=== PATIENT | female | born 2000 | race Caucasian/White ===

== ENCOUNTER 2020-06-04 19:07 | Emergency (ER) | payer OTHER, SELFPAY ==
[2020-06-04 19:15] VITALS: BP 143/87; PULSE 90; RESP 18; TEMP 36.7; O2SAT 99; BMI 22.1
[2020-06-04 21:18] VITALS: BP 131/74; PULSE 104; RESP 16; TEMP 37; O2SAT 97
--- NOTE | 2020-06-04 21:25 | ED_ITS ---
HPI - General Adult General Chief complaint: General Medical Stated complaint: foreign body Source: patient Mode of arrival: ambulatory Limitations: no limitations History of Present Illness HPI narrative: 20-year-old female presents with a broken insulin pump needle to her left thigh. She was playing with her children and her , she hit the side of her leg and the insulin pump broke off. She did try to remove the needle herself however the needle went deeper into her skin. She does not have any other concerns at this time. Onset (ago): hour(s) (Within the hour of arrival) Location: lower extremity Radiation: non-radiation Severity: mild Associated symptoms: denies other symptoms Related Data Allergies Allergy/AdvReac Type Severity Reaction Status Date / Time No Known Allergies Allergy Verified 06/04/20 19:17 Review of Systems Review of Systems: Constitutional: No Fever, No Chills, positive foreign body to the left thigh ENT/Mouth: No Ear Pain, No Hoarseness, No sore throat Eyes: No Eye Pain, No Swelling, No Redness, No Foreign Body Cardiovascular: No Chest Pain, No SOB Respiratory: No Cough, No Dyspnea Gastrointestinal: No Nausea, No Vomiting, No Diarrhea, No abdominal Pain Genitourinary: No Dysuria, No Hematuria Musculoskeletal: No joint pain, No Myalgias, No Joint Swelling Skin: No Skin lacerations, No rash Neuro: No Weakness, No Numbness, No Paresthesias, No Loss of Consciousness, No Dizziness, No Headache Psych: No Anxiety/Panic, No Depression Heme/Lymph: no easy bruising, no Lymphadenopathy Endocrine: No Polyuria, No Polydipsia Yes all other systems are reviewed and are negative [facility] Past Medical History Attestation statement: The following information was validated with the patient. Medical History Diabetes Hypothyroid Social History Social History Advance Directives: No Advance Directives Information Provided: Yes Physical Exam Vital Signs: Vital Signs: Last Vital Signs Temp 98.6 F 06/04/20 21:18 Pulse 104 H 06/04/20 21:18 Resp 16 06/04/20 21:18 BP 131/74 06/04/20 21:18 Pulse Ox 97 06/04/20 21:18 Body Mass Index 22.1 Appearance: Alert. Oriented X3. No acute distress. Eyes: Pupils equal, round and reactive to light. ENT: Pharynx normal. Neck: Normal inspection. Neck supple. CVS: Normal heart rate and rhythm. Pulses normal. Respiratory: No respiratory distress. Breath sounds normal. Abdomen: Soft and nontender. Skin: Skin warm and dry. Normal skin color. Normal skin turgor. Extremities: No lower extremity edema. Neuro: No motor deficit. No sensory deficit. Course Course Course Narrative: 20-year-old female presents with foreign body, broken needle from her insulin pump to the left thigh. Plan is to use lidocaine with epi and to extract the needle. Small incision made with an 11 blade, needle visualized and removed without difficulty. Site was prepped and draped in sterile fashion, patient tolerated procedure well, 0 blood loss. Steri-Strips used, laceration approximately 0.25 cm in length and in depth. Patient verbalized understanding of and agrees to plan of care discharge home. Medical Decision Making MDM Narrative Medical decision making narrative: Foreign body removal Discharge Plan Discharge Clinical Impression: History of retained foreign body fully removed Patient Disposition: Home, Self-Care Instructions: Wound Infection (ED), Wound Healing and Your Diet (ED), Sterist rips (ED) Additional Instructions: We removed a broken insulin syringe from your left thigh. Please keep the Steri-Strips in place. Follow-up with primary care physician and her endocri nologist as needed. Thank you for choosing this emergency department for evaluation. Please follow-up with primary care physician as needed. Return to the emergency department for any new, concerning, or worsening symptoms. Interventions: ED Discharge Assessment Last Done: 06/04/20 22:20 Discharge Date/Time: 06/04/20 22:23
[2020-06-04] MEDS: Lidocaine HCl 2%/Epi 1:100,000 20 ML VIAL 5 ML INFILTRATI (21:37)
== END 2020-06-04 22:23 | disposition home or self-care (01) ==
PROVIDERS: Emergency Provider Internal Medicine; PCP Internal Medicine Medical Oncology
DX: M79.5 Residual foreign body in soft tissue (principal); Z79.899 Other long term (current) drug therapy
CPT/HCPCS: 99284

== ENCOUNTER 2021-03-21 13:57 | Emergency (ER) | payer BC, MEDICAID, SELFPAY ==
[2021-03-21 14:25] VITALS: BP 133/79; PULSE 107; RESP 18; TEMP 37.2; O2SAT 98; BMI 23.0
--- NOTE | 2021-03-21 15:54 | PC.NURSE ---
call no answer [id number]
--- NOTE | 2021-03-21 16:02 | PC.NURSE ---
second call, no answer. LWT
== END 2021-03-21 16:28 | disposition left against medical advice (07) ==
PROVIDERS: Emergency Provider Emergency Medicine
DX: O46.90 Antepartum hemorrhage, unspecified, unspecified trimester (principal); Z3A.00 Weeks of gestation of pregnancy not specified
CPT/HCPCS: 99281; 99282

== ENCOUNTER 2023-10-01 18:39 | Emergency (ER) | payer BC, SELFPAY ==
--- NOTE | ~2023-10-01 | XR_ITS ---
EXAMINATION: XR CHEST CLINICAL INFORMATION: Chest pain COMPARISON: None available. TECHNIQUE: 2 views of the chest were obtained. FINDINGS: The trachea is in normal anatomic position. Heart size is normal. The lungs are clear. No pleural effusion or pneumothorax. No acute osseous abnormality. XR/XR chest 2V IMPRESSION: No acute cardiopulmonary disease.
[2023-10-01 18:46] VITALS: BP 121/77; BP 139/83; PULSE 123; PULSE 126; RESP 18; TEMP 36.6; O2SAT 95; O2SAT 98; BMI 30.9
--- NOTE | 2023-10-01 18:49 | ECG_ITS ---
Test Reason : CHEST PAIN Blood Pressure : / mmHG Vent. Rate : 118 BPM Atrial Rate : 118 BPM P-R Int : 146 ms QRS Dur : 072 ms QT Int : 294 ms P-R-T Axes : 035 032 -06 degrees QTc Int : 412 ms Sinus tachycardia Otherwise normal ECG No previous ECGs available Referred By: Generic ED Physician Electronically Signed By:CORIE ESCALONA
--- NOTE | 2023-10-01 18:59 | ED_ITS ---
HPI - Chest Pain General Chief Complaint: Chest Pain Stated Complaint: chest pain, slightly tachycardic Time Seen by Provider: 10/01/23 18:52 Source: patient Limitations: no limitations History of Present Illness HPI narrative: 23 years old with history of type 1 diabetes, on insulin, compliant with her medication, presents emergency room for chest pain. Patient reports that the pain started approximately 2 hours prior to presentation while she was playing video games. Patient's reports that the pain does not appear to be exertional and did not worse with deep respiration. Patient reported that she had nausea but no episodes of vomiting. Patient also reports that she never experienced an episode like this before. Patient denies chills fever or cough No abdominal pain, diarrhea, bloody stools. Related Data Allergies Allergy/AdvReac Type Severity Reaction Status Date / Time No Known Allergies Allergy Verified 10/01/23 18:49 Review of Systems 2 Review of Systems: Yes all other systems are reviewed and are negative PMFSH Past Medical History Medical History Diabetes Hypothyroid Social History Social History Advance Directives: No Advance Directives Information Provided: No Physical Exam 2 Vital Signs: Vital Signs: Last Vital Signs Temp 97.8 F 10/01/23 18:46 Pulse 123 H 10/01/23 18:46 Resp 18 10/01/23 18:46 BP 121/77 10/01/23 18:46 Pulse Ox 95 10/01/23 18:46 O2 Del Method Room Air 10/01/23 18:46 BMI result Body Mass Index 30.9 General: Alert, Not in Distress Skin: No rash, warm HEENT: Atraumatic, No Exudate or Pharyngeal Erythema Resp: Normal Breath sounds bilaterally Cardio: tachycardia but Regular rate and, Normal S1, S2 ABD: Abd soft, non tender, no guarding or rebound. Normal Bowel sounds. : No cva tenderness Neuro: Alert, oriented x4, PERRL Strenght 5/5 on all extremities Sensation is preserved in both lower and upper extremities Index to nose: normal Cranial Nerves II-XII grossly intact No dysarthria, or aphasia No neglet. Visual mayes are normal bilaterally Psych: Cooperative, NO SI Course Reevaluation(s) Reevaluation #1: Patient's symptoms have improved. Lab work was unremarkable including CBC and troponin. Consideration of the fact the patient is tachycardic will add D-dimer. We will send out to Dr. Genao Time: 21:22 Medications Administered Discontinued Medications Generic Name Dose Route Start Last Admin Trade Name Sara PRN Reason Stop Dose Admin Acetaminophen 975 mg 10/01/23 18:58 10/01/23 19:16 Acetaminophen 325 Mg Tablet PO 10/01/23 18:59 975 mg ONCE ONE Administration Sodium Chloride 1,000 mls @ 999 mls/hr 10/01/23 19:15 10/01/23 19:16 Ns IV 10/01/23 20:15 999 mls/hr .Q1H1M RANDA Administration Ibuprofen 400 mg 10/01/23 18:58 10/01/23 19:16 Ibuprofen 400 Mg Tablet PO 10/01/23 18:59 400 mg ONCE ONE Administration Medical Decision Making Medical Decision Making [facility] Narrative: Patient presented to the emergency room for sudden onset of chest pain that started approximately 2 hours prior to presentation. Her EKG that I personally interpreted and reviewed showed sinus tachycardia, unclear the reason of the patient's chest pain, pain is not typical features. Patient has history of diabetes and I do not think this is an atypical presentation of DKA or will check a VBG. High likely ACS, patient is 23 years old she has sinus tachycardia but I have P low on my differential diagnosis at this time. Plan Single troponin, CBC, BMP Chest x-ray VBG Analgesia IV fluids The assess Admission/Observation Consideration of admission/observation: Escalation of care including admission/observation considered Lab Data [facility] Lab Attestation statement: I reviewed the patient's lab results. Negative troponin D-dimer pending unremarkable CBC and BMP 10/01/23 19:00 10/01/23 19:25 Labs: Lab Results 10/01/23 10/01/23 10/01/23 Range/Units 19:00 19:25 19:29 WBC 9.9 (4.8-10.8) X10*3/uL RBC 4.53 (4.20-5.50) X10*6/uL Hgb 14.2 (12.0-16.0) g/dl Hct 41.0 (37.0-47.0) % MCV 90.5 (80.0-98.0) fL MCH 31.3 (27.0-33.0) pg MCHC 34.6 (31.0-35.0) g/dl RDW 12.7 (11.0-16.0) % Plt Count 394 (160-400) X10*3/uL MPV 8.9 L (9.4-12.3) fL Immature Gran % (Auto) 0.2 (0.0-0.4) % Neut % (Auto) 63.5 (45-73) % Lymph % (Auto) 26.1 (20-40) % [place] % (Auto) 7.7 (2-11) % Eos % (Auto) 1.6 (0-4) % Baso % (Auto) 0.9 (0-2) % Lymph # (Auto) 2.6 (1.2-4.9) X10*3/uL [place] # (Auto) 0.8 (0.1-1.2) X10*3/uL Eos # (Auto) 0.2 (0.0-0.4) X10*3/uL Baso # (Auto) 0.1 (0.0-0.2) X10*3/uL Abs Immat Gran (auto) 0.02 (0.00-0.03) X10*3/uL Absolute Neuts (auto) 6.3 (2.0-8.3) x10*3/uL Absolute Nucleated RBC 0.000 (0.0-0.012) X10*3/uL Nucleated RBC % (auto) 0.0 (0.0-0.2) /100WBC VBG pH 7.46 H (7.32-7.43) VBG pCO2 27 mmHg VBG pO2 111 mmHg VBG HCO3 19 L (22-26) mmol/L VBG O2 Saturation 99.0 % VBG Base Excess -2.6 mmol/L Sodium 139 (135-145) mmol/L Potassium 4.3 (3.3-5.1) mmol/L Chloride 106 (96-108) mmol/L Carbon Dioxide 21 L (22-29) mmol/L Anion Gap 16 (12-20) BUN 16 (9-16) mg/dL Creatinine 1.18 (0.5-1.4) mg/dL Estim Creat Clear Calc 73.2 Estimated GFR 56 Random Glucose 213 H (60-115) mg/dL Calcium 9.2 (8.4-10.2) mg/dL Troponin I High Sens < 2.7 (<3.5-17.0) ng/L Urine Test (NEGATIVE) 10/01/23 Range/Units 20:24 WBC (4.8-10.8) X10*3/uL RBC (4.20-5.50) X10*6/uL Hgb (12.0-16.0) g/dl Hct (37.0-47.0) % MCV (80.0-98.0) fL MCH (27.0-33.0) pg MCHC (31.0-35.0) g/dl RDW (11.0-16.0) % Plt Count (160-400) X10*3/uL MPV (9.4-12.3) fL Immature Gran % (Auto) (0.0-0.4) % Neut % (Auto) (45-73) % Lymph % (Auto) (20-40) % Andrews % (Auto) (2-11) % Eos % (Auto) (0-4) % Baso % (Auto) (0-2) % Lymph # (Auto) (1.2-4.9) X10*3/uL Andrews # (Auto) (0.1-1.2) X10*3/uL Eos # (Auto) (0.0-0.4) X10*3/uL Baso # (Auto) (0.0-0.2) X10*3/uL Abs Immat Gran (auto) (0.00-0.03) X10*3/uL Absolute Neuts (auto) (2.0-8.3) x10*3/uL Absolute Nucleated RBC (0.0-0.012) X10*3/uL Nucleated RBC % (auto) (0.0-0.2) /100WBC VBG pH (7.32-7.43) VBG pCO2 mmHg VBG pO2 mmHg VBG HCO3 (22-26) mmol/L VBG O2 Saturation % VBG Base Excess mmol/L Sodium (135-145) mmol/L Potassium (3.3-5.1) mmol/L Chloride (96-108) mmol/L Carbon Dioxide (22-29) mmol/L Anion Gap (12-20) BUN (9-16) mg/dL Creatinine (0.5-1.4) mg/dL Estim Creat Clear Calc Estimated GFR Random Glucose (60-115) mg/dL Calcium (8.4-10.2) mg/dL Troponin I High Sens (<3.5-17.0) ng/L Urine Test NEGATIVE (NEGATIVE) Independent Interpretation I performed an independent interpretation of an: EKG (Personally reviewed and interpreted EKG: Sinus tachycardia) and Plain X-Ray Interpretation: Personally reviewed and interpreted chest x-ray normal chest x-ray Discharge Plan Discharge Clinical Impression: Chest pain Print Language: [place]
[2023-10-01 19:06] LABS: MANUAL DIFF FLAG NO
[2023-10-01 19:07] LABS: Basophils Absolute Auto 0.1 X10*3/uL (0.0-0.2); Basophils Percent Auto 0.9 % (0-2); Eosinophils Absolute Auto 0.2 X10*3/uL (0.0-0.4); Eosinophils Percent Auto 1.6 % (0-4); Hemoglobin 14.2 g/dl (12.0-16.0); Imm Gran Abs Auto 0.02 X10*3/uL (0.00-0.03); Imm Gran Pct Auto 0.2 % (0.0-0.4); Lymphocytes Absolute Auto 2.6 X10*3/uL (1.2-4.9); Lymphocytes Percent Auto 26.1 % (20-40); Mean Corpuscular HGB Conc 34.6 g/dl (31.0-35.0); Mean Corpuscular Hemoglobin 31.3 pg (27.0-33.0); Mean Corpuscular Volume 90.5 fL (80.0-98.0); Mean Platelet Volume 8.9 fL (9.4-12.3); Monocytes Absolute Auto 0.8 X10*3/uL (0.1-1.2); Monocytes Percent Auto 7.7 % (2-11); Neutrophils Absolute Auto 6.3 x10*3/uL (2.0-8.3); Neutrophils Percent Auto 63.5 % (45-73); Platelet Count 394 X10*3/uL (160-400); Red Blood Count 4.53 X10*6/uL (4.20-5.50); Red Cell Distribution Width 12.7 % (11.0-16.0); White Blood Count 9.9 X10*3/uL (4.8-10.8)
[2023-10-01] MEDS: 0.9 % Sodium Chloride 1,000 ML 999 ML IV (19:16)
[2023-10-01] MEDS: Ibuprofen 400 MG TABLET PO (19:16)
[2023-10-01] MEDS: Acetaminophen 325 MG TABLET 975 MG PO (19:16)
[2023-10-01 19:39] LABS: VBG Base Excess -2.6 mmol/L; VBG HCO3 19 mmol/L (22-26); VBG pCO2 27 mmHg; VBG pH 7.46 (7.32-7.43); VBG pO2 111 mmHg
[2023-10-01 19:42] LABS: Venous Blood Gas Refer to POC result
[2023-10-01 19:45] LABS: Anion Gap 16 (12-20); Blood Urea Nitrogen 16 mg/dL (9-16); Calcium 9.2 mg/dL (8.4-10.2); Carbon Dioxide 21 mmol/L (22-29); Chloride 106 mmol/L (96-108); Creatinine Clr Calc Pharmacy 73.2; Estimated Glomerular Filt Rate 56; Glucose Random 213 mg/dL (60-115); Potassium 4.3 mmol/L (3.3-5.1); Sodium 139 mmol/L (135-145)
[2023-10-01 19:58] LABS: Troponin-I High Sensitivity < 2.7 ng/L (<3.5-17.0)
[2023-10-01 20:39] LABS: UPreg QC Valid YES; Urine Pregnancy NEGATIVE (NEGATIVE)
[2023-10-01 21:54] LABS: D Dimer High Sensitivity < 150 NG/ML
[2023-10-01 22:10] VITALS: BP 124/72; PULSE 96; RESP 16; TEMP 37; O2SAT 99
[2023-10-01 23:16] VITALS: BP 124/73; PULSE 80; RESP 20; TEMP 36.4; O2SAT 98
[2023-10-01 23:21] VITALS: BP 124/73; PULSE 80; RESP 20; TEMP 36.4; O2SAT 98
== END 2023-10-01 23:22 | disposition home or self-care (01) ==
PROVIDERS: Student in an Organized Health Care Education/Training Program; Emergency Provider Emergency Medicine Emergency Medical Services
DX: R07.9 Chest pain, unspecified (principal); E10.65 Type 1 diabetes mellitus with hyperglycemia
CPT/HCPCS: 36415; 71046; 80048; 81025; 82803; 84484; 85025; 85379; 93005; 96360; 96361; 99284; 99285

== ENCOUNTER → 2023-10-01 18:49 | Outpatient (BNV) | payer MEDICAID, SELFPAY | PROVIDERS: Emergency Provider Emergency Medicine Emergency Medical Services; Visit Provider Internal Medicine | DX: R00.0 Tachycardia, unspecified (principal) | CPT/HCPCS: 93010 ==

== ENCOUNTER 2024-07-03 18:43 | Emergency (ER) | payer OTHER, SELFPAY ==
--- NOTE | 2024-07-03 | ECG_ITS ---
Test Reason : CHEST PAIN Blood Pressure : */* mmHG Vent. Rate : 124 BPM Atrial Rate : 124 BPM P-R Int : 152 ms QRS Dur : 70 ms QT Int : 308 ms P-R-T Axes : 54 15 -13 degrees QTcB Int : 442 ms Sinus tachycardia Otherwise normal ECG When compared with ECG of 01-Oct-2023 18:57, No significant change was found Referred By: Generic ED Physician Electronically Signed By: GEOVANNI HAYNES MD
--- NOTE | ~2024-07-03 | XR_ITS ---
CLINICAL HISTORY: chest pain 2 view chest x-ray. Comparison: 10/01/2023 Findings: Lungs are clear without acute infiltrates. No pneumothorax. Heart size normal. No acute bony abnormalities. Impression: No acute processes This document has been electronically signed by: Christopher Cisse MD on 07/03/2024 20:35:43
[2024-07-03 19:16] VITALS: BP 119/75; PULSE 136; O2SAT 96; BMI 32.9
--- NOTE | 2024-07-03 19:22 | ED_ITS ---
HPI - Chest Pain General Chief Complaint: Chest Pain Stated Complaint: chest pain x 1hr Time Seen by Provider: 07/03/24 19:22 Source: patient and EMS Mode of arrival: EMS Limitations: no limitations History of Present Illness ED Provider: Aliya Priest NP HPI narrative: Patient is a 24-year-old female with past medical history of diabetes, hypothyroidism who presents emergency department for evaluation. She reports at approximately 15:45 this evening after eating dinner she was getting ready for work when she developed sudden onset of pain to the substernal region of her chest radiating towards the left she felt associated shortness of breath and she had a single episode of vomiting. She reports that the pain is somewhat improved now but is a burning sensation described as 5/6. She states that for dinner she ate pork loin and rice pilaf. She denies any recent URI symptoms or known sick contacts. EMS gave aspirin 324 mg prior to arrival. She does admit to a history of costochondritis but she states that this pain feels different than what she has experienced in the past. Denies the pain radiating to the arm, no associated diaphoresis. Related Data Allergies Allergy/AdvReac Type Severity Reaction Status Date / Time No Known Allergies Allergy Verified 07/03/24 19:19 Review of Systems 2 Review of Systems: Yes all other systems are reviewed and are negative PMFSH Past Medical History Attestation statement: The following information was validated with the patient. Source: old records reviewed Medical History Hypothyroid Diabetes Social History Social History Advance Directives: No Advance Directives Information Provided: No Physical Exam 2 Vital Signs: Vital Signs: Last Vital Signs Temp 98.1 F 07/03/24 21:43 Pulse 90 07/03/24 21:43 Resp 20 07/03/24 21:43 BP 112/66 07/03/24 21:43 Pulse Ox 98 07/03/24 21:43 O2 Del Method Room Air 07/03/24 21:43 BMI result Body Mass Index 32.9 Appearance: Alert.?Oriented to person, place and time. No acute distress.?Normal affect. Eyes: Pupils equal, round and reactive to light.? ENT: Pharynx normal.?? Neck: Normal inspection.? Neck supple.??No JVD. CVS: Heart sounds normal. Tachycardia? Pulses normal.?? Respiratory: No respiratory distress.? Lung sounds clear to auscultation bilaterally?? Abdomen: Soft and non-tender. Normoactive bowel sounds. Skin: Skin warm and dry.? Normal skin color.? ?? Extremities: No lower extremity edema.? No calf ttp? Neuro: Moves all extremities spontaneously. Sensation intact bilaterally. . No focal neuro deficits. Ambulates with normal steady gait. Course Reevaluation(s) Reevaluation #1: CBC is without leukocytosis or anemia. D-dimer below detectable limits unlikely pulmonary embolism. No electrolyte derangement. No WILLIE. LFTs within normal range. High sensitive troponin negative x2, initial EKG revealing a sinus tachycardia with ventricular rate of 124, QTC 442, no ST elevation, while in the department pulse decreased to 90 remain consistently there. Viral serologies are negative. Chest x-ray without evidence of pneumonia. At this time feel that she is stable for discharge home, outpatient follow-up with primary care doctor, did discuss with the possibility for costochondritis, she did trial a GI cocktail did not notice any particular difference with this to suggest GERD. Discussed strict return precautions. All questions answered Medications Administered Discontinued Medications Generic Name Dose Route Start Last Admin Trade Name Freq PRN Reason Stop Dose Admin Al Hydroxide/Mg Hydroxide 30 ml 07/03/24 21:58 07/03/24 22:16 Magnesium Hydrox/Alum Hydrox 30 Ml Oral.Susp PO 07/03/24 21:59 30 ml ONCE ONE Administration Famotidine 20 mg 07/03/24 21:58 07/03/24 22:16 Famotidine 20 Mg Tablet PO 07/03/24 21:59 20 mg ONCE ONE Administration Lidocaine HCl 15 ml 07/03/24 21:58 07/03/24 22:16 Lidocaine Hcl Viscous 2 % 15 Ml Solution MUCOUS MEM 07/03/24 21:59 15 ml ONCE ONE Administration Medical Decision Making Medical Decision Making [facility] Narrative: Patient is a 24-year-old female past medical history of diabetes and hypothyroidism who presents to the emergency department for evaluation with complaint of chest pain sudden onset this evening. Nonreproducible chest pain, had associated shortness of breath and a single episode of vomiting while at home. No recent ill like symptoms. No evidence of volume overload or shock on exam. Low suspicion for acute PE (Wells 1.5, low risk) obtaining D-dimer. Lower suspicion for pneumothorax, thoracic aortic dissection, cardiac effusion / tamponade. No recent trauma or injury, no tracheal deviation, unlikely tension pneumothorax. No recent URI symptoms to suggest viral illness, pneumonia, costochondritis. No abdominal tenderness upon palpation, negative Hi sign, unlikely acute cholecystitis, choledocholithiasis, no fever or jaundice to suggest acute cholangitis, may possibly be biliary colic secondary to cholelithiasis. Denies associated acid reflux, no tenderness upon palpation over the epigastrium or left upper quadrant to suggest gastritis, no recent hematemesis history less likely to suggest PUD. Denies excessive alcohol consumption, she does however have diabetes, reports good control of her blood glucose levels recently, possibility for acute pancreatitis. Heart score 1. Will obtain CBC to evaluate for leukocytosis/ anemia, CMP and lipase to evaluate for abnormal electrolytes /abnormal renal function/ abnormal hepatic/biliary function, EKG and troponin to evaluate for ischemia/ACS. Chest x-ray to evaluate for consolidation/ infiltrate/ mass/ pulmonary congestion and Urinalysis. Differential Diagnosis Differential Diagnoses: The differential diagnosis associated with the presentation includes (See narrative above) Admission/Observation Consideration of admission/observation: Escalation of care including admission/observation considered (See narrative above and course narrative for further detail) Lab Data MDM Lab Attestation statement: I reviewed the patient's lab results. 07/03/24 20:17 07/03/24 20:17 Labs: Lab Results 07/03/24 07/03/24 Range/Units 20:17 22:16 WBC 7.3 (4.8-10.8) X10*3/uL RBC 4.22 (4.20-5.50) X10*6/uL Hgb 13.3 (12.0-16.0) g/dl Hct 38.8 (37.0-47.0) % MCV 91.9 (80.0-98.0) fL MCH 31.5 (27.0-33.0) pg MCHC 34.3 (31.0-35.0) g/dl RDW 13.0 (11.0-16.0) % Plt Count 404 H (160-400) X10*3/uL MPV 8.8 L (9.4-12.3) fL Immature Gran % (Auto) 0.3 (0.0-0.4) % Neut % (Auto) 65.3 (45-73) % Lymph % (Auto) 22.8 (20-40) % [place] % (Auto) 9.7 (2-11) % Eos % (Auto) 1.1 (0-4) % Baso % (Auto) 0.8 (0-2) % Lymph # (Auto) 1.7 (1.2-4.9) X10*3/uL [place] # (Auto) 0.7 (0.1-1.2) X10*3/uL Eos # (Auto) 0.1 (0.0-0.4) X10*3/uL Baso # (Auto) 0.1 (0.0-0.2) X10*3/uL Abs Immat Gran (auto) 0.02 (0.00-0.03) X10*3/uL Absolute Neuts (auto) 4.8 (2.0-8.3) x10*3/uL Absolute Nucleated RBC 0.000 (0.0-0.012) X10*3/uL Nucleated RBC % (auto) 0.0 (0.0-0.2) /100WBC PT 10.4 L (10.9-12.4) SEC INR 0.9 (0.9-1.1) D-Dimer High Sensitivty < 150 NG/ML Sodium 143 (135-145) mmol/L Potassium 3.9 (3.3-5.1) mmol/L Chloride 113 H (96-108) mmol/L Carbon Dioxide 19 L (22-29) mmol/L Anion Gap 15 (12-20) BUN 9 (9-16) mg/dL Creatinine 0.76 (0.5-1.4) mg/dL Estim Creat Clear Calc 112.0 Estimated GFR > 60 Random Glucose 68 (60-115) mg/dL Calcium 8.2 L D (8.4-10.2) mg/dL Total Bilirubin 0.2 (0.0-1.0) mg/dL AST 20 (5-31) U/L ALT 14 (0-31) U/L Alkaline Phosphatase 56 (39-117) U/L Troponin I High Sens < 2.7 < 2.7 (<3.5-17.0) ng/L Total Protein 7.3 (6.5-8.0) g/dL Albumin 4.1 (3.5-5.0) g/dL Influenza Type A (PCR) NEGATIVE (Negative) Influenza Type B (PCR) NEGATIVE (Negative) RSV RNA Qual (PCR) NEGATIVE (Negative) SARS-CoV-2 RNA (RT-PCR) NEGATIVE (Negative) Independent Interpretation I performed an independent interpretation of an: EKG Interpretation: EKG revealing a sinus tachycardia with ventricular rate of 124, QTC 442, no ST elevation, ST depression Radiology Impression Discussion of test interpretation with radiology: I have reviewed the radiologist's reading. Independent Historian Clinical information obtained from an independent historian. History obtained from or confirmed by: EMS External Record Review External record reviewed: Outpatient record Discharge Plan Discharge Clinical Impression: Atypical chest pain Patient Disposition: Home, Self-Care Instructions: Chest Pain (ED) Additional Instructions: Your blood work today was very reassuring. A screening test that we use look for a blood clot in the lungs are D-dimer was normal making a blood clot in the lungs very unlikely. Cardiac enzymes were checked x2 both of which were negative, and EKG does not show evidence of a heart attack. You were tested for COVID, flu, and RSV all of which were negative. Your chest x-ray does not show evidence of pneumonia. Please be sure to rest over the next few days. You can take ibuprofen 200 mg, 3 tablets (600mg) every 6-8 hours as needed for pain, in addition to Tylenol 500 mg, 2 tablets (1,000mg) every 4-6 hours as needed for pain, but not to exceed 3 doses daily (3,000mg).? Follow-up with your primary care doctor. Return with any new or worsening symptoms or concerns Print Language: Kis[place]
[2024-07-03 20:23] LABS: MANUAL DIFF FLAG NO
[2024-07-03 20:28] LABS: Basophils Absolute Auto 0.1 X10*3/uL (0.0-0.2); Basophils Percent Auto 0.8 % (0-2); Eosinophils Absolute Auto 0.1 X10*3/uL (0.0-0.4); Eosinophils Percent Auto 1.1 % (0-4); Hematocrit 38.8 % (37.0-47.0); Hemoglobin 13.3 g/dl (12.0-16.0); Imm Gran Abs Auto 0.02 X10*3/uL (0.00-0.03); Imm Gran Pct Auto 0.3 % (0.0-0.4); Lymphocytes Absolute Auto 1.7 X10*3/uL (1.2-4.9); Lymphocytes Percent Auto 22.8 % (20-40); Mean Corpuscular HGB Conc 34.3 g/dl (31.0-35.0); Mean Corpuscular Hemoglobin 31.5 pg (27.0-33.0); Mean Corpuscular Volume 91.9 fL (80.0-98.0); Mean Platelet Volume 8.8 fL (9.4-12.3); Monocytes Absolute Auto 0.7 X10*3/uL (0.1-1.2); Monocytes Percent Auto 9.7 % (2-11); Neutrophils Absolute Auto 4.8 x10*3/uL (2.0-8.3); Neutrophils Percent Auto 65.3 % (45-73); Platelet Count 404 X10*3/uL (160-400); Red Blood Count 4.22 X10*6/uL (4.20-5.50); White Blood Count 7.3 X10*3/uL (4.8-10.8)
[2024-07-03 20:44] LABS: D Dimer High Sensitivity < 150 NG/ML; INTERNATIONAL NORM RATIO 0.9 (0.9-1.1); Prothrombin Time 10.4 SEC (10.9-12.4)
[2024-07-03 20:51] LABS: Alanine Aminotransferase 14 U/L (0-31); Albumin Level 4.1 g/dL (3.5-5.0); Alkaline Phosphatase 56 U/L (39-117); Anion Gap 15 (12-20); Aspartate Amino Transferase 20 U/L (5-31); Bilirubin Total 0.2 mg/dL (0.0-1.0); Blood Urea Nitrogen 9 mg/dL (9-16); Calcium 8.2 mg/dL (8.4-10.2); Carbon Dioxide 19 mmol/L (22-29); Chloride 113 mmol/L (96-108); Estimated Glomerular Filt Rate > 60; Glucose Random 68 mg/dL (60-115); Potassium 3.9 mmol/L (3.3-5.1); Sodium 143 mmol/L (135-145); Total Protein 7.3 g/dL (6.5-8.0)
[2024-07-03 20:59] LABS: Troponin-I High Sensitivity < 2.7 ng/L (<3.5-17.0)
[2024-07-03 21:10] LABS: Influenza A PCR NEGATIVE (Negative); Influenza B PCR NEGATIVE (Negative); Resp Syncy Virus RNA Qual PCR NEGATIVE (Negative); SARS COV2 PCR INHOUSE NEGATIVE (Negative)
[2024-07-03 21:43] VITALS: BP 112/66; PULSE 90; RESP 20; TEMP 36.7; O2SAT 98
[2024-07-03] MEDS: Famotidine 20 MG TABLET PO (22:16)
[2024-07-03] MEDS: Magnesium Hydrox/Alum Hydrox 30 ML ORAL.SUSP PO (22:16)
[2024-07-03] MEDS: Lidocaine HCl Viscous 2 % 15 ML SOLUTION MUCOUS MEM (22:16)
[2024-07-03 22:44] LABS: Troponin-I High Sensitivity < 2.7 ng/L (<3.5-17.0)
[2024-07-03 23:36] VITALS: BP 142/83; PULSE 90; RESP 14; TEMP 36.2; O2SAT 98
== END 2024-07-03 23:37 | disposition home or self-care (01) ==
PROVIDERS: Nurse Practitioner Family; Emergency Provider Emergency Medicine Emergency Medical Services
DX: R07.9 Chest pain, unspecified (principal); E11.9 Type 2 diabetes mellitus without complications; E03.9 Hypothyroidism, unspecified; Z03.818 Encounter for observation for suspected exposure to other biological agents ruled out
CPT/HCPCS: 0241U; 36415; 71046; 80053; 84484; 85025; 85379; 85610; 93005; 99283; 99284

== ENCOUNTER → 2024-07-03 19:07 | Outpatient (BNV) | payer OTHER, SELFPAY | PROVIDERS: Emergency Provider Emergency Medicine Emergency Medical Services; Visit Provider Internal Medicine Cardiovascular Disease | DX: R00.0 Tachycardia, unspecified (principal); R07.9 Chest pain, unspecified | CPT/HCPCS: 93010 ==